=== PATIENT | female | born 1990 | race Caucasian/White ===

== ENCOUNTER 2018-08-10 12:43 | Outpatient (CLI) | payer OTHER ==
--- NOTE | 2018-08-10 15:00 | ULT ---
RIGHT LOWER EXTREMITY VENOUS DOPPLER ULTRASOUND EVALUATION: HISTORY: Right leg pain. TECHNIQUE: Multiple longitudinal and transverse images of the right lower extremity venous system are obtained u sing a Multi-Hertz linear array transducer. FINDINGS: Real-time, color-flow, and spectral wave-form Doppler analysis demonstrates no evidence of acute or o ld clot seen in the right common femoral vein, superficial femoral vein, femoral profunda, popliteal, posterior tibial vein, post trifurcation vein, and right greater saphenous vein. IMPRESSION: No evidence of acute right lower extremity deep venous thrombosis. POS: JENNIFER
== END 2018-08-10 12:44 | disposition home or self-care (01) ==
LOC: BICULT 12:43
PROVIDERS: ATTEND Family Medicine
DX: M79.604 Pain in right leg (principal)

== ENCOUNTER 2020-12-10 13:44 | Outpatient (CLI) | payer OTHER ==
--- NOTE | 2020-12-10 15:00 | MMO ---
Bilateral MAMMO Bilat Diag DDI+ROD. CLINICAL HISTORY: Patient is 30 years old and is seen for diagnostic exam and lump or thickening in the lower-inner region of the right breast. The patient has no family history of breast cancer. The patient has no personal history of cancer. VIEWS: The views performed were: bilateral craniocaudal with tomosynthesis; bilateral mediolateral oblique with tomosynthesis; and bilateral mediolateral with tomosynthesis. FILMS COMPARED: The present examination has been compared to a prior imaging study performed at [facility] on 12/10/2020. This study has been interpreted with the assistance of computer-aided detection. MAMMOGRAM FINDINGS: The breasts are heterogeneously dense, which could obscure a lesion on mammography. No mammographic or sonograhic abnormality is seen at the site of palpable concern in the right lower inner breast There are no suspicious masses, suspicious calcifications, or new areas of architectural distortion. IMPRESSION: THERE IS NO MAMMOGRAPHIC EVIDENCE OF MALIGNANCY. A ROUTINE FOLLOW-UP MAMMOGRAM AT AGE 39 IS RECOMMENDED. THE RESULTS OF THIS EXAM WERE SENT TO THE PATIENT. ACR BI-RADS Category 2 - Benign finding MAMMOGRAPHY NOTE: 1. A negative mammogram report should not delay a biopsy if a dominant of clinically suspicious mass is present. 2. Approximately 10% to 15% of breast cancers are not detected by mammography. 3. Adenosis and dense breasts may obscure an underlying neoplasm. Reported by: DIONY IQBAL MD Electonically Signed: [id number]
--- NOTE | 2020-12-10 15:13 | ULT ---
RIGHT BREAST ULTRASOUND: HISTORY: Palpable abnormality in the right lower breast. FINDINGS: Sonographic evaluation of the region of palpable concern in the right lower breast (4, 5, and 6 o'mayra ck positions) demonstrates no abnormality. Correlation was made with the mammogram of the same date. IMPRESSION: BIRADS category 2 - benign findings. Return to annual mammographic screening. POS: OFF
== END 2020-12-10 13:45 | disposition home or self-care (01) ==
LOC: BICMAMMO 13:44
PROVIDERS: ATTEND Family Medicine
DX: N63.10 Unspecified lump in the right breast, unspecified quadrant (principal)
CPT/HCPCS: 77066; G0279

== ENCOUNTER 2021-08-28 19:30 | Outpatient (CLI) | payer OTHER | END 2021-08-28 19:31 | disposition home or self-care (01) | LOC: SLEEPLAB 19:30 | PROVIDERS: ATTEND Student in an Organized Health Care Education/Training Program | DX: G47.33 Obstructive sleep apnea (adult) (pediatric) (principal); R53.83 Other fatigue; R06.83 Snoring; F41.9 Anxiety disorder, unspecified; F32.9 Major depressive disorder, single episode, unspecified; R09.89 Other specified symptoms and signs involving the circulatory and respiratory systems; J45.909 Unspecified asthma, uncomplicated; G47.00 Insomnia, unspecified; G47.10 Hypersomnia, unspecified | CPT/HCPCS: 95810 ==